=== PATIENT | male | born 1960 | race Asian ===

== ENCOUNTER → 2018-08-19 | Day surgery (SDC) | payer MEDICARE, OTHER ==
--- NOTE | 2018-08-14 10:41 | Diagnostic Imaging Report ---
EXAMINATION: CHEST 2 VIEWS INDICATION: Pre-op. COMPARISON: None FINDINGS: TUBES and LINES: None. LUNGS: Lungs are well inflated. Lungs are clear. There is no evidence of pneumonia or pulmonary edema. PLEURA: No pleural effusion or pneumothorax. HEART AND MEDIASTINUM: The cardiomediastinal silhouette is unremarkable. The thoracic aorta is tortuous. BONES AND SOFT TISSUES: No acute osseous abnormality. UPPER ABDOMEN: No free air under the diaphragm. IMPRESSION: No acute radiographic abnormality. Signed by: Dr. Gustavo Sharma MD on 08/14/2018 10:37 AM
[~2018-08-19] MED LIST: ASPIR 8181 MG PO; CEFTRIAXONE SOD 1 GM/NS 50 ML 50 ML IV ONE; FENTANYL CITRATE/PF 100MCG/2 ML INJ ONE; LIDOCAINE HCL 2% LOCAL INJ 5 ML SDV VIAL INJ ONE; MIDAZOLAM HCL 2 MG/2 ML VIAL ONE; MULTIPLE VITAM1 EAC1 PO; PROPOFOL IV EMULSION 10 MG/ML 20 ML VIAL ONE; RENVELA0.8 GM PO; SODIUM CHLORIDE 0.9% 500ML 500 ML ONE
[2018-08-19 10:32] LABS: BASOPHILS # (AUTO) 0.1 (0.0-0.1); BASOPHILS % 0.8 % (0.0-1.0); EOSINOPHILS # (AUTO) 0.6 (0.0-0.4); EOSINOPHILS % 9.1 % (0.0-6.0); HEMATOCRIT 38.3 % (38.2-49.6); HEMOGLOBIN 12.1 g/dL (14.0-18.0); LYMPHOCYTES # (AUTO) 1.2 (1.0-3.2); MEAN CORPUSCULAR HGB CONC 31.6 g/dL (31-35); MEAN CORPUSCULAR VOLUME 91.8 fL (81-99); MONOCYTES # (AUTO) 0.5 (0.2-0.8); MONOCYTES % 8.5 % (4.4-11.3); NEUTROPHILS % 63.1 % (38.7-80.0); PLATELET COUNT 190 x10e3/uL (140-360); RED BLOOD COUNT 4.17 x10e6/uL (4.3-5.7); RED CELL DISTRIBUTION WIDTH 13.7 % (11.7-14.4)
[2018-08-19 10:38] LABS: INR 0.99; PROTHROMBIN TIME 13.6 seconds (11.9-14.5)
[2018-08-19 10:39] LABS: PARTIAL THROMBOPLASTIN TIME 34.9 seconds (23.8-35.5)
[2018-08-19 10:50] LABS: ANION GAP 17.9 mmol/L (8-16); CALCIUM 10.4 mg/dL (8.4-10.2); CREATININE, SERUM 10.64 mg/dL (0.72-1.25); POTASSIUM 3.9 mmol/L (3.5-5.1)
[2018-08-19 12:40] VITALS: BP 109/67
--- OUTSIDE RECORDS SUMMARY | 2018-08-19 13:02 | XMS REPORT | Clinical Summary ---
Author Author [facility] Address Unknown Phone Unavailable Care Team Providers Care Print Developer Automatic Name Role Phone Angel Rivas MD PCP Allergies No Known Allergies Medications End Date Status Medication Sig Dispensed Refills Start Date Active sevelamer (RENVELA) 800 Take 800 mg 0 mg tablet by mouth 3 (three) times a day with meals. Take 4 tablets with each meal, and 3 with each snack Active cinacalcet (SENSIPAR) 30 Take 30 mg by 0 MG tablet mouth daily. Takes once a day with meal Active carvedilol (COREG) 25 MG Take 25 mg by 0 tablet mouth 2 (two) times a day. Active NON FORMULARY Take 1 tablet 0 by mouth daily. DIALYVITE VIT D Active aspirin (ECOTRIN) 81 MG Take 81 mg by 0 enteric coated tablet mouth daily. Active cholecalciferol, vitamin Take 5,000 0 D3, (VITAMIN D3) 5,000 Units by unit capsule mouth daily. Active Problems Problem Noted Date ESRD (end stage renal disease) on dialysis 05/22/2016 Hypertension 05/22/2016 Morbid obesity with BMI of 40.0-44.9, adult 05/22/2016 Hypertensive nephrosclerosis 02/14/2016 Encounters Care Team Description Date Type Specialty [facility] Status Update Protocol 06/17/2018 Telephone Transplant after 08/18/2017 Social History Date Tobacco Use Types Packs/Day Years Used Never Smoker Smokeless Tobacco: Never Used Sex Assigned at Date Recorded Not on file Industry Job Start Date Occupation Not on file Not on file Not on file Travel End Travel History Travel Start No recent travel history available. Last Filed Vital Signs Not on file Plan of Treatment Health Maintenance Due Date Last Done Comments COLON CANCER SCREENING 2008 SHINGLES VACCINES (#1) 2008 INFLUENZA VACCINE 11/20/2018 Results Not on fileafter 08/18/2017 Insurance Payer Benefit Subscriber ID Type Phone Address Plan / Group MEDICARE MEDICARE xxxxxxxxxx Medicare [place] PART A AND B BCBS BCBS OUT xxxxxxxxxxxx PPO OF STATE Advance Directives Patient has advance care planning documents on file. For more information, gris jim contact: Nazario Crow [address] [place] [address]
--- OUTSIDE RECORDS SUMMARY | 2018-08-19 13:02 | XMS REPORT | Clinical Summary ---
Author Author [facility] Address Unknown Phone Unavailable Care Team Providers Care Candle Making Supervisor Name Role Phone Angel Rivas PCP Unavailable Allergies Comments Active Allergy Reactions Severity Noted Date brien Moser unable to recall reactions Other Other (See 02/04/2013 Comments) Medications End Date Status Medication Sig Dispensed Refills Start Date Active cefdinir (OMNICEF) 300 MG Take 300 mg 0 capsule by mouth daily. Active folic acid-multivitamins Take 1 tablet 0 (B COMPLEX-VITAMIN by mouth C-FOLIC ACID) 0.8 mg Tab daily. tablet Active sevelamer (RENVELA) 800 Take 800 mg 0 mg tablet by mouth 3 (three) times daily with meals. 5 tablets with meals and 2-3 with snacks Active cinacalcet (SENSIPAR) 60 Take 60 mg by 0 MG tablet mouth daily. Active aspirin 81 MG chewable Take 81 mg by 0 tablet mouth daily. Active Problems Problem Noted Date Renal failure 02/03/2013 Encounters Care Team Description Date Type Specialty Melani Wilson MD Other chest pain (Primary Dx); ESRD (end stage renal disease) ([facility]); Obesity determined by physical examination; Stage 5 chronic kidney disease on chronic dialysis ([facility]) 10/16/2017 Emergency Emergency Medicine 10/16/2017 Orders Only General Internal Medicine after 08/18/2017 Family History Medical History Relation Name Comments Kidney disease Sister Relation Name Status Comments Sister Social History Date Tobacco Use Types Packs/Day Years Used Never Smoker Smokeless Tobacco: Never Used Alcohol Use Drinks/Week oz/Week Comments No Sex Assigned at Date Recorded Not on file Industry Job Start Date Occupation Not on file Not on file Not on file Travel End Travel History Travel Start No recent travel history available. Last Filed Vital Signs Time Taken Vital Sign Reading 10/16/2017 8:37 PM CDT Blood Pressure 146/105 10/16/2017 8:12 PM CDT Pulse 80 10/16/2017 8:12 PM CDT Temperature 36.6 C (97.8 F) 10/16/2017 8:12 PM CDT Respiratory Rate 20 10/16/2017 8:12 PM CDT Oxygen Saturation 100% - Inhaled Oxygen - Concentration - Weight - - Height - - Body Mass Index - Plan of Treatment Health Maintenance Due Date Last Done Comments INFLUENZA VACCINE 01/20/2018 Procedures Comments Procedure Name Priority Date/Time Associated Diagnosis ED ECG INTERPRETATION Routine 10/17/2017 7:05 PM CDT XR CHEST 2 VIEWS STAT 10/16/2017 8:56 PM CDT CBC W/PLT COUNT & AUTO STAT 10/16/2017 DIFFERENTIAL 8:54 PM CDT B-TYPE NATRIURETIC FACTOR STAT 10/16/2017 (BNP) 8:54 PM CDT RAPID TROPONIN I STAT 10/16/2017 8:54 PM CDT LIPASE STAT 10/16/2017 8:54 PM CDT HEPATIC FUNCTION PANEL STAT 10/16/2017 8:54 PM CDT BASIC METABOLIC PANEL (7) STAT 10/16/2017 8:54 PM CDT CBC W/PLT COUNT & AUTO STAT 10/16/2017 DIFFERENTIAL 8:54 PM CDT ECG 12-LEAD STAT 10/16/2017 8:13 PM CDT after 08/18/2017 Results * ED ECG Interpretation (10/17/2017 7:05 PM CDT) Narrative Performed At Melani Wilson MD 10/17/20177:05 PM ECG/EKG Interpretation Date/Time: 10/16/2017 8:13 PM Performed by: MELANI WILSON Authorized by: MELANI WILSON The ECG was interpreted by ED physician. This ECG was not compared with previous ECG(s).The ECG is interpreted as sinus rhythm. Rate is normal rate. Heart rate is 80 BPM. Clinical Impression: non-specific ECG and abnormal ECGECG reviewed and does not meet STEMI criteria. Patient tolerance: Patient tolerated the procedure well with no immediate complications * XR chest 2 views (10/16/2017 8:56 PM CDT) Specimen Narrative Performed At FINAL REPORT GE RIS INDICATION: CHEST PAIN COMPARISON: February 22, 2013 TECHNIQUE: Single frontal view of the chest. FINDINGS: Lungs and pleura: Clear lungs. No effusion. Heart and mediastinum: Normal heart size. Unremarkable mediastinal contours. Osseous structures: No acute abnormality. Other: None. IMPRESSION: No acute intrathoracic abnormality. Signed: JR Young Robert MD Report Verified Date/Time:10/16/2017 20:59:01 Reading Location: [address] Reading Room Procedure Note Interface, External Ris In - 10/16/2017 9:01 PM CDT FINAL REPORT INDICATION: CHEST PAIN COMPARISON: February 22, 2013 TECHNIQUE: Single frontal view of the chest. FINDINGS: Lungs and pleura: Clear lungs. No effusion. Heart and mediastinum: Normal heart size. Unremarkable mediastinal contours. Osseous structures: No acute abnormality. Other: None. IMPRESSION: No acute intrathoracic abnormality. Signed: JR Young Robert MD Report Verified Date/Time: 10/16/2017 20:59:01 Reading Location: [address] Reading Room Performing Organization Address City/[facility]/Zipcode Phone Number RIS * Rapid Troponin I (10/16/2017 8:54 PM CDT) Rapid Troponin I <0.05 <0.05 ng/mL [facility], [facility] [place] Specimen Blood Performing Organization Address City/[facility]/Zipcode Phone Number [facility] [address] [place] [address] [facility], [facility] [place] * CBC with platelet count + automated diff (10/16/2017 8:54 PM CDT) WBC 6.8 4.0 - 10.0 10e3/L [facility], [facility] [place] RBC 4.57 4.20 - 5.80 10e6/L [facility] [place] Hemoglobin 13.9 13.0 - 16.8 g/dL [facility] [place] Hematocrit 42.0 40.0 - 50.0 % [facility] [place] MCV 91.9 82.0 - 98.[address] [facility] [place] MCH 30.4 27.0 - 33.[address] [facility] [place] MCHC 33.1 32.0 - 36.0 g/dL [facility] [place] RDW 14.3 (H) 10.3 - 14.2 % [facility] [place] Platelets 172 150 - 430 10e3/L [facility] [place] MPV 8.5 6.5 - 10.[address] [facility] [place] % Neutros 67 % [facility] [place] % Lymphs 20 % [facility] [place] % Monos 7 % [facility] % Eos 5 % [facility] [place] % Baso 1 % [facility] [place] # Neutros 4.57 1.80 - 8.00 10e3/L [facility] # Lymphs 1.34 (L) 1.48 - 4.50 10e3/L [facility], [facility] [place] # Monos 0.50 0.00 - 1.30 10e3/L [facility], [facility] [place] # Eos 0.34 0.00 - 0.50 10e3/L [facility], [facility] [place] # Baso 0.04 0.00 - 0.20 10e3/L [facility], [facility], [facility] Specimen Blood Performing Organization Address [facility] Phone [facility] [address] [address] [facility], [facility], [facility] * B-type Natriuretic Factor (BNP) (10/16/2017 8:54 PM CDT) BNP 156 (H) 0 - 100 pg/mL [facility] Specimen Blood Performing Organization Address [facility] Phone Number [address] [address] [facility] * Lipase (10/16/2017 8:54 PM CDT) Lipase 395 (H) 40 - 240 U/L [facility], [facility], [facility] Specimen Blood Performing Organization Address City/[facility] Phone Number [address] [phone] [facility] * Hepatic function panel (10/16/2017 8:54 PM CDT) Protein, Total 7.7 6.0 - 8.5 gm/dL [facility], [facility], [facility] Albumin 4.2 3.5 - 5.0 g/dL [facility], [facility], [facility] Total Bilirubin 0.8 0.1 - 1.2 mg/dL [facility] [place] Bilirubin, Direct 0.6 (H) 0.0 - 0.4 mg/dL [facility], [facility] [place] Alkaline Phosphatase 92 30 - 115 U/L [facility] AST 15 5 - 40 U/L [facility] [place] ALT 38 5 - 50 U/L [facility], [facility] [place] Specimen Blood Performing Organization Address City/State/Zipcode Phone Number [facility] [address] [place] [address] [facility], [facility] [place] * Basic Metabolic Panel (10/16/2017 8:54 PM CDT) Sodium 139 135 - 148 meq/L [facility] Potassium 5.0 3.6 - 5.5 meq/L [facility] Chloride 95 (L) 98 - 106 meq/L [facility] CO2 34 (H) 24 - 32 meq/L [facility] BUN 23 10 - 26 mg/dL [facility] Creatinine 7.95 (H) 0.50 - 1.20 mg/dL [facility] Glucose 80 70 - 110 mg/dL [facility] Calcium 10.1 8.5 - 10.5 mg/dL [facility], [facility], [facility] EGFR 8Comment: ESTIMATED GFR IS NOT mL/min/1.73 sq m LUCAS VALLEJO ACCURATE CREATININE [facility] MEDICAL CLEARANCE IN PREDICTING [place] GLOMERULAR FILTRATION RATE. EMERGENCY CENTER, ESTIMATED GFR IS NOT [facility] APPLICABLE FOR DIALYSIS PATIENTS. Specimen Blood Performing Organization Address City/State/Zipcode Phone Number LUCAS VALLEJO [address] [place] [address] [facility], [facility], [facility] * ECG 12 lead (10/16/2017 8:13 PM CDT) Specimen Narrative Performed At Ventricular Rate 80 BPM GE MUSE Atrial Rate 80 BPM P-R Interval 186 ms QRS Duration 86 ms Q-T Interval 360 ms QTC Calculation(Bazett) 415 ms P [place] 46 degrees R [place] 5 degrees T [place] -7 degrees Normal sinus rhythm Possible Left atrial enlargement Nonspecific T wave abnormality Abnormal ECG When compared with ECG of 03-FEB-2013 17:52, T wave inversion now evident in Inferior leads QT has shortened Confirmed by Surjit GOMEZ, STANISLAV ([id number]) on 10/18/2017 9:46:19 AM Procedure Note Interface, External Ris In - 10/18/2017 9:46 AM CDT Ventricular Rate 80 BPM Atrial Rate 80 BPM P-R Interval 186 ms QRS Duration 86 ms Q-T Interval 360 ms QTC Calculation(Bazett) 415 ms P [place] 46 degrees R [place] 5 degrees T [place] -7 degrees Normal sinus rhythm Possible Left atrial enlargement Nonspecific T wave abnormality Abnormal ECG When compared with ECG of 03-FEB-2013 17:52, T wave inversion now evident in Inferior leads QT has shortened Confirmed by Surjit GOMEZ, STANISLAV ([id number]) on 10/18/2017 9:46:19 AM Performing Organization Address City/State/Zipcode Phone Number DIPIKA OROURKE after 08/18/2017 Insurance Payer Benefit Subscriber ID Type Phone Address Plan / Group MEDICARE MEDICARE A xxxxxxxxxx Medicare B BLUE CROSS/BLUE SHIELD BCBS PPO xxxxxxxxxxxx PPO [phone] [address] [place] [address] CHOICE
--- OUTSIDE RECORDS SUMMARY | 2018-08-19 13:03 | XMS REPORT | Summary of Care ---
Author Author [facility] Organization [facility] Address Unknown Phone Unavailable Encounter SPIKE Lamb(NOVA) [id number] Date(s): 01/07/18 - 01/07/18 [facility] [address] [place] [address]- [phone] Encounter Diagnosis Other specified complication of vascular prosthetic devices, implants and grafts , initial encounter (Final) - 01/10/18 Hypertensive chronic kidney disease with stage 5 chronic kidney disease or end s tage renal disease (Final) - End stage renal disease (Final) - 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) - Dependence on renal dialysis (Final) - Obstructive sleep apnea (adult) (pediatric) (Final) - prison (current) use of aspirin (Final) - Discharge Disposition: Home or Self Care Attending Physician: Kamran Gray MD Referring Physician: Kamran Gray MD Vital Signs 1 2 3 Most recent to oldest [Reference Range]: 190.5 cm (01/02/18 8:50 AM) Height 145/77 mmHg *HI* (01/07/18 11:15 AM) 164/80 mmHg *HI* (01/07/18 10:55 AM) 154/98 mmHg *HI* (01/07/18 10:45 AM) Blood Pressure [90-140/60-90 mmHg] 16 BRMIN (01/07/18 11:15 AM) 16 BRMIN (01/07/18 10:55 AM) 11 BRMIN *LOW* (01/07/18 10:45 AM) Respiratory Rate [14-20 BRMIN] 77 bpm (01/07/18 8:14 AM) Peripheral Pulse Rate [60-100 bpm] 139.091 kg (01/02/18 8:50 AM) Weight 38.33 m2 (01/02/18 8:50 AM) Body Mass Index Problem List Condition Effective Dates Status Health Status Informant End stage renal Active disease(Confirmed) Hypertension(Confirm Resolved ed) Obstructive sleep Active apnea(Confirmed) Allergies, Adverse Reactions, Alerts Substance Reaction Severity Status NKDA Active Medications acetaminophen-codeine 300 mg-60 mg oral tablet 1 tab=, PO, Q4H, PRN Pain, X 7 day, # 42 tab, 0 Refill(s) Start Date: 01/07/18 Stop Date: 01/14/18 Status: Completed Ancef + sterile water 30 mL 3 gm, Route: IVPB, ONCE, Dosing Weight 139.091, kg, Start date: 01/07/18 5:46:00 CDT, Stop date: 01/07/18 5:46:00 CDT, ABX Indication: Surgical Prophylaxis Notes: (Same As: Ancef, Anibalzol) MEDICATION WASTE Product Size: 1000 mgP roduct Wasted: ___ mg Start Date: 01/07/18 Stop Date: 01/07/18 Status: Completed ANES flumazenil 0.2 mg, 2 mL, Route: IVP, Drug form: INJ, PRN, Dosing Weight 139.091, kg, PRN Be nzodiazepine Reversal, Initial dose, Start date: 01/07/18 8:43:00 CDT, Duration: 12 hr, Stop date: 01/07/18 20:42:00 CDT Notes: (Same as: Romazicon) Start Date: 01/07/18 Stop Date: 01/07/18 Status: Discontinued ANES hydrALAZINE 10 mg, 0.5 mL, Route: IVP, Drug form: INJ, Q10Min, Dosing Weight 139.091, kg, TN N Elevated BP, Start date: 01/07/18 8:43:00 CDT, Duration: 2 doses or times, Sto p date: 01/07/18 22:00:00 CDT Notes: (Same as: Apresoline)Push over 5 minutes Start Date: 01/07/18 Stop Date: 01/07/18 Status: Discontinued ANES meperidine 12.5 mg, 0.5 mL, Route: IVP, Drug form: INJ, Q30Min, Dosing Weight 139.091, kg, PRN Other -See Comment, For shivering, Start date: 01/07/18 8:43:00 CDT, Duratio n: 2 doses or times, Stop date: 01/07/18 22:00:00 CDT Notes: (Same as: Demerol) "Use Precaution in Elderly, Seizure disorders, and Re nal impairment" Start Date: 01/07/18 Stop Date: 01/07/18 Status: Discontinued ANES morphine Sulfate 4 mg, 1 mL, Route: IVP, Drug form: SOLN, Q5Min, Dosing Weight 139.091, kg, PRN P ain Score 7-10, Start date: 01/07/18 8:43:00 CDT, Duration: 3 doses or times, St op date: 01/07/18 22:00:00 CDT Notes: (Same as: MORPhine Sulfate) Start Date: 01/07/18 Stop Date: 01/07/18 Status: Discontinued ANES morphine Sulfate 2 mg, 1 mL, Route: IVP, Drug form: INJ, Q5Min, Dosing Weight 139.091, kg, PRN Pa in Score 4-6, Start date: 01/07/18 8:43:00 CDT, Duration: 5 doses or times, Stop date: 01/07/18 22:00:00 CDT Notes: (Same as:MORPhine Sulfate) Start Date: 01/07/18 Stop Date: 01/07/18 Status: Discontinued ANES naloxone 0.4 mg, 1 mL, Route: IVP, Drug form: INJ, Q2MIN, Dosing Weight 139.091, kg, PRN Narcotic Reversal, Start date: 01/07/18 8:43:00 CDT, Duration: 8 doses or times, Stop date: 01/07/18 22:00:00 CDT Notes: Same as Narcan Start Date: 01/07/18 Stop Date: 01/07/18 Status: Discontinued ANES ondansetron 4 mg, 2 mL, Route: IVP, Drug form: INJ, ONCE, Dosing Weight 139.091, kg, PRN [place] & Vomiting, Start date: 01/07/18 8:43:00 CDT Notes: (Same as: Nora) MEDICATION WASTE Product Size: 4 mgProduct Was kaiser: ___ mg Start Date: 01/07/18 Stop Date: 01/07/18 Status: Discontinued ANES oxyCODONE 5 mg, 1 tab, Route: PO, Drug form: TAB, Q4H, Dosing Weight 139.091, kg, PRN Pain Score 4-6, Start date: 01/07/18 8:43:00 CDT, Duration: 12 hr, Stop date: 20:42:00 CDT Notes: (Same as: Roxicodone) Start Date: 01/07/18 Stop Date: 01/07/18 Status: Discontinued ceFAZolin (ANES) Route: IV, Drug form: INJ, ONCE, Stop date: 01/07/18 9:59:00 CDT Start Date: 01/07/18 Stop Date: 01/07/18 Status: Completed ePHEDrine (ANES) Route: IV, Drug form: INJ, ONCE, Stop date: 01/07/18 9:59:00 CDT Start Date: 01/07/18 Stop Date: 01/07/18 Status: Completed fentaNYL (ANES) Route: IV, Drug form: INJ, ONCE, Stop date: 01/07/18 9:34:00 CDT Start Date: 01/07/18 Stop Date: 01/07/18 Status: Completed heparin (ANES) Route: IV, Drug form: INJ, ONCE, Stop date: 01/07/18 9:59:00 CDT Start Date: 01/07/18 Stop Date: 01/07/18 Status: Completed Keflex 500 mg oral capsule 500 mg=1 cap, PO, BID, X 7 day, # 14 cap, 0 Refill(s) Start Date: 01/07/18 Stop Date: 01/14/18 Status: Completed Lactated Ringers Injection IV (ANES) 1000 mL Route: IV, Total Volume: 1,000, Start date: 01/07/18 8:49:00 CDT, Stop date: 9:49:00 CDT Start Date: 01/07/18 Stop Date: 01/07/18 Status: Completed Lactated Ringers Injection IV 1,000 mL 1,000 mL, Rate: 25 ml/hr, Infuse over: 40 hr, Route: IV, Dosing Weight 139.091 k g, Total Volume: 1,000, Start date: 01/07/18 8:42:00 CDT, Duration: 30 day, Stop date: 02/06/18 8:41:00 CDT, 2.74, m2 Start Date: 01/07/18 Stop Date: 01/07/18 Status: Discontinued lidocaine (ANES) Route: IV, Drug form: INJ, ONCE, Stop date: 01/07/18 9:34:00 CDT Start Date: 01/07/18 Stop Date: 01/07/18 Status: Completed midazolam (ANES) Route: IV, Drug form: SOLN, ONCE, Stop date: 01/07/18 9:34:00 CDT Start Date: 01/07/18 Stop Date: 01/07/18 Status: Completed phenylephrine (ANES) Route: IV, Drug form: INJ, ONCE, Stop date: 01/07/18 10:06:00 CDT Start Date: 01/07/18 Stop Date: 01/07/18 Status: Completed propofol (ANES) Route: IV, Drug form: INJ, ONCE, Stop date: 01/07/18 9:34:00 CDT Start Date: 01/07/18 Stop Date: 01/07/18 Status: Completed protamine (ANES) Route: IV, Drug form: INJ, ONCE, Stop date: 01/07/18 10:06:00 CDT Start Date: 01/07/18 Stop Date: 01/07/18 Status: Completed rocuronium (ANES) Route: IV, Drug form: INJ, ONCE, Stop date: 01/07/18 9:34:00 CDT Start Date: 01/07/18 Stop Date: 01/07/18 Status: Completed Sodium Chloride 0.9% IV 250 mL 250 mL, Rate: 30 ml/hr, Infuse over: 8.3 hr, Route: IV, Dosing Weight 139.091 kg , Total Volume: 250, Start date: 01/07/18 5:45:00 CDT, Duration: 30 day, Stop da te: 02/06/18 5:44:00 CDT, 2.74, m2 Start Date: 01/07/18 Stop Date: 01/07/18 Status: Discontinued Results ELECTROLYTES Most recent to 1 oldest [Reference Range]: Sodium Lvl [135-145 138 mEq/L mEq/L] (01/02/18 9:45 AM) Potassium Lvl 5.0 mEq/L [3.5-5.1 mEq/L] (01/02/18 9:45 AM) Chloride Lvl [95-109 97 mEq/L mEq/L] (01/02/18 9:45 AM) CO2 [24-32 mEq/L] 32 mEq/L (01/02/18 9:45 AM) AGAP [10.0-20.0 14.0 mEq/L mEq/L] (01/02/18 9:45 AM) CHEM PANEL Most recent to 1 oldest [Reference Range]: Creatinine Lvl 10.20 mg/dL [0.50-1.40 mg/dL] *HI* (01/02/18 9:45 AM) eGFR 6 mL/min/1.73m2 1 *NA* (01/02/18 9:45 AM) BUN [7-22 mg/dL] 38 mg/dL *HI* (01/02/18 9:45 AM) Glucose Lvl [70-99 74 mg/dL mg/dL] (01/02/18 9:45 AM) Calcium Lvl 10.0 mg/dL [8.5-10.5 mg/dL] (01/02/18 9:45 AM) 1Result Comment: The eGFR is calculated using the CKD-EPI formula. In most young, healthy individuals the eGFR will be >90 mL/min/1.73m2. The eGFR declines with age. An eGFR of 60-89 may be normal in some populations, particularly the elderly, for whom the CKD-EPI formula has not been extensively validated. Use of the eGFR is not recommended in the following populations: Individuals with unstable creatinine concentrations, including patients and those with serious co-morbid conditions. Patients with extremes in muscle mass or diet. The data above are obtained from the National Kidney Disease Education Program ( NKDEP) which additionally recommends that when the eGFR is used in patients with extremes of body mass index for purposes of drug dosing, the eGFR should be mul tiplied by the estimated BMI. HEMATOLOGY Most recent to 1 oldest [Reference Range]: WBC [3.7-10.4 K/CMM] 7.3 K/CMM (01/02/18 9:45 AM) RBC [4.70-6.10 4.52 M/CMM M/CMM] *LOW* (01/02/18 9:45 AM) Hgb [14.0-18.0 g/dL] 14.1 g/dL (01/02/18 9:45 AM) Hct [42.0-54.0 %] 42.6 % (01/02/18 9:45 AM) MCV [80.0-94.0 fL] 94.4 fL *HI* (01/02/18 9:45 AM) MCH [27.0-31.0 pg] 31.2 pg *HI* (01/02/18 9:45 AM) MCHC [32.0-36.0 33.1 g/dL g/dL] (01/02/18 9:45 AM) RDW [11.5-14.5 %] 15.3 % *HI* (01/02/18 9:45 AM) MPV [7.4-10.4 fL] 8.6 fL (01/02/18 9:45 AM) Platelet [133-450 181 K/CMM K/CMM] (01/02/18 9:45 AM) Segs [45.0-75.0 %] 68.7 % (01/02/18 9:45 AM) Lymphocytes 15.1 % [20.0-40.0 %] *LOW* (01/02/18 9:45 AM) Monocytes [2.0-12.0 8.8 % %] (01/02/18 9:45 AM) Eosinophils [0.0-4.0 6.7 % %] *HI* (01/02/18 9:45 AM) Basophils [0.0-1.0 0.7 % %] (01/02/18 9:45 AM) Neutrophils # 5.0 K/CMM [1.5-8.1 K/CMM] (01/02/18 9:45 AM) Lymphocytes # 1.1 K/CMM [1.0-5.5 K/CMM] (01/02/18 9:45 AM) Monocytes # [0.0-0.8 0.6 K/CMM K/CMM] (01/02/18 9:45 AM) Eosinophils # 0.5 K/CMM [0.0-0.5 K/CMM] (01/02/18 9:45 AM) PT [12.0-14.7 13.9 seconds seconds] (01/02/18 9:45 AM) INR [0.85-1.17] 1.07 (01/02/18 9:45 AM) PTT [22.9-35.8 34.9 seconds seconds] (01/02/18 9:45 AM) Immunizations Given and Recorded Vaccine Date Status Refusal Reason Hx pneumococcal vaccine 04/28/18 Recorded Hx pneumococcal vaccine 03/02/13 Recorded Hx influenza vaccine-unspecified 01/10/18 Recorded Hx influenza vaccine-unspecified 01/17/17 Recorded Hx influenza vaccine-unspecified 12/24/15 Recorded Hx influenza vaccine-unspecified 01/17/15 Recorded Hx influenza vaccine-unspecified 12/23/13 Recorded Hx influenza vaccine-unspecified 05/08/13 Recorded Hx hepatitis B vaccine 05/11/14 Recorded Hx hepatitis B vaccine 12/18/13 Recorded Hx hepatitis B vaccine 11/16/13 Recorded Hx hepatitis B vaccine 10/07/13 Recorded Procedures Procedure Date Related Diagnosis Body Site Status Colonoscopy 2016 Completed Hydrocele operation 2003 Completed Repair of umbilical hernia 1989 Completed Endoscopy Completed Social History Social History Type Response Substance Abuse Use: None. Employment/School Status: Disabled. Alcohol Current, Type Beer. Frequency: 1-2 times per month. Smoking Status Former smoker; Type: Cigars; Exposure to Tobacco Smoke None; Cigarette Smoking Last 365 Days No; Reg Smoking Cessation Counseling No; Stopped at age: 33; entered on: 01/02/18 Assessment and Plan No data available for this section
--- OUTSIDE RECORDS SUMMARY | 2018-08-19 13:03 | XMS REPORT ---
Author Author [facility] Address Unknown Phone Unavailable Care Team Providers Care Clinical Research Manager Name Role Phone Faiza WEAVER Unavailable Unavailable NATACHA ABDI Unavailable Unavailable Problems This patient has no known problems. Allergies, Adverse Reactions, Alerts This patient has no known allergies or adverse reactions. Medications This patient has no known medications. Encounters Start Date/Time End Date/Time Encounter Type Admission Type Attending Clinicians Care Facility Care Department Encounter ID 2018-08-12 07:14:00 2018-08-12 07:14:00 Outpatient [facility] [id number] Results Test Description Test Time Test Comments Text Results Atomic Results Result Comments CHEST 2 VIEWS 2018-08-14 10:35:00 [place] [address] Patient Name: KATHRYN DAS MR #: [id number] : 1960 Age/Sex: 58/M Req #: [id number] Adm Physician: Ordered by: RITA WEAVER MD Report #: [id number] Location: OR Room/Bed: Procedure: [id number] DX/CHEST 2 VIEWS Exam Date: 08/14/18 Exam Time: 1020 REPORT STATUS: Signed EXAMINATION: CHEST 2 VIEWS INDICATION: Pre-op. COMPARISON: None FINDINGS: TUBES and LINES: None. LUNGS: Lungs are well inflated. Lungs are clear. There is no evidence of pneumonia or pulmonary edema. PLEURA: No pleural effusion or pneumothorax. HEART AND MEDIASTINUM: The cardiomediastinal silhouette is unremarkable. The thoracic aorta is tortuous. BONES AND SOFT TISSUES: No acute osseous abnormality. UPPER ABDOMEN: No free air under the diaphragm. IMPRESSION: No acute radiographic abnormality. Signed by: Dr. Regi Sharma MD on 08/14/2018 10:37 AM Dictated By: REGI SHARMA MD [id number] Transcribed By: GARY on 08/14/18 1037 COPY TO: RITA WEAVER MD RAPID TROPONIN I 2017-10-16 21:18:00 RAPID TROPONIN I (BEAKER) (test fcxm=0716) < ng/mL <0.05 B-TYPE NATRIURETIC FACTOR (BNP)2017-10-16 21:18:00* Test Item Value Reference Range Comments B-TYPE NATRIURETIC PEPTIDE (BEAKER) (test ftye=225) 156 pg/mL 0-100 HEPATIC FUNCTION [id number] 21:17:00* Test Item Value Reference Range Comments TOTAL PROTEIN (BEAKER) (test lgot=259) 7.7 gm/dL 6.0-8.5 ALBUMIN (BEAKER) (test coft=6615) 4.2 g/dL 3.5-5.0 BILIRUBIN TOTAL (BEAKER) (test gtii=690) 0.8 mg/dL 0.1-1.2 BILIRUBIN DIRECT (BEAKER) (test xlvd=407) 0.6 mg/dL 0.0-0.4 ALKALINE PHOSPHATASE (BEAKER) (test quxz=641) 92 U/L 30-115 AST (SGOT) (BEAKER) (test qbca=129) 15 U/L 5-40 ALT (SGPT) (BEAKER) (test clpu=594) 38 U/L 5-50 [id number] 21:17:00* Test Item Value Reference Range Comments LIPASE (BEAKER) (test axkb=475) 395 U/L 40-240 BASIC METABOLIC [id number] 21:17:00* Test Item Value Reference Range Comments SODIUM (BEAKER) (test tcfx=063) 139 meq/L 135-148 POTASSIUM (BEAKER) (test ovsl=479) 5.0 meq/L 3.6-5.5 CHLORIDE (BEAKER) (test amkf=232) 95 meq/L 98-106 CO2 (BEAKER) (test esag=943) 34 meq/L 24-32 BLOOD UREA NITROGEN (BEAKER) (test hfpa=822) 23 mg/dL 10-26 CREATININE (BEAKER) (test watt=391) 7.95 mg/dL 0.50-1.20 GLUCOSE RANDOM (BEAKER) (test rsbx=850) 80 mg/dL 70-110 CALCIUM (BEAKER) (test joub=841) 10.1 mg/dL 8.5-10.5 EGFR (BEAKER) (test mrzw=7725) 8 mL/min/1.73 sq m ESTIMATED GFR IS NOT ACCURATE CREATININE CLEARANCE IN PREDICTING GLOMERULAR FILTRATION RATE. ESTIMATED GFR IS NOT APPLICABLE FOR DIALYSIS PATIENTS. CBC W/PLT COUNT & AUTO [id number] 21:11:00* Test Item Value Reference Range Comments WHITE BLOOD CELL COUNT (BEAKER) (test haeb=213) 6.8 10e3/i? L 4.0-10.0 RED BLOOD CELL COUNT (BEAKER) (test ztjy=594) 4.57 10e6/i? L 4.20-5.80 HEMOGLOBIN (BEAKER) (test jeny=023) 13.9 g/dL 13.0-16.8 HEMATOCRIT (BEAKER) (test ksko=808) 42.0 % 40.0-50.0 MEAN CORPUSCULAR VOLUME (BEAKER) (test lgbt=889) 91.9 fL 82.0-98.0 MEAN CORPUSCULAR HEMOGLOBIN (BEAKER) (test kzcx=530) 30.4 pg 27.0-33.0 MEAN CORPUSCULAR HEMOGLOBIN CONC (BEAKER) (test stgi=299) 33.1 g/dL 32.0-36.0 RED CELL DISTRIBUTION WIDTH (BEAKER) (test amoj=180) 14.3 % 10.3-14.2 PLATELET COUNT (BEAKER) (test ftwn=018) 172 10e3/i? L 150-430 MEAN PLATELET VOLUME (BEAKER) (test cozs=014) 8.5 fL 6.5-10.5 NEUTROPHILS RELATIVE PERCENT (BEAKER) (test wyib=382) 67 % LYMPHOCYTES RELATIVE PERCENT (BEAKER) (test hbnu=000) 20 % MONOCYTES RELATIVE PERCENT (BEAKER) (test kvwy=036) 7 % EOSINOPHILS RELATIVE PERCENT (BEAKER) (test apsa=927) 5 % BASOPHILS RELATIVE PERCENT (BEAKER) (test xfww=578) 1 % NEUTROPHILS ABSOLUTE COUNT (BEAKER) (test qurl=026) 4.57 10e3/i? L 1.80-8.00 LYMPHOCYTES ABSOLUTE COUNT (BEAKER) (test sjfv=290) 1.34 10e3/i? L 1.48-4.50 MONOCYTES ABSOLUTE COUNT (BEAKER) (test ftyu=891) 0.50 10e3/i? L 0.00-1.30 EOSINOPHILS ABSOLUTE COUNT (BEAKER) (test cbnm=968) 0.34 10e3/i? L 0.00-0.50 BASOPHILS ABSOLUTE COUNT (BEAKER) (test apyz=135) 0.04 10e3/i? L 0.00-0.20 RAD, CHEST, 2 [id number] 20:59:00Reason for exam:->CHEST PAINFINAL REPORT INDICATION: CHEST PAIN COMPARISON: February 22, 2013 TECHNIQUE: Single frontal view of the chest. FINDINGS: Lungs and pleura: Clear lungs. No effusion.Heart and mediastinum: Normal heart size. Unremarkable mediastinal contours.Osseous structures: No acute abnormality.Other: None. IMP RESSION: No acute intrathoracic abnormality. Signed: JR Hannah, Christie JACOB Report Verified Date/Time: 10/16/2017 20:59:01 Reading Location: [address] Reading Room Electronically signed by: CHRISTIE SETHI on 08:59 PM
--- OUTSIDE RECORDS SUMMARY | 2018-08-19 13:03 | XMS REPORT | Summary of Care ---
Author Author [facility] Organization [facility] Address Unknown Phone Unavailable Encounter SPIKE Lamb(NOVA) [id number] Date(s): 11/05/17 - 11/05/17 [facility] [id number] [place] [address]- Encounter Diagnosis Other specified complication of vascular prosthetic devices, implants and grafts , initial encounter (Final) - 11/14/17 Hypertensive chronic kidney disease with stage 5 chronic kidney disease or end s tage renal disease (Final) - End stage renal disease (Final) - Dependence on renal dialysis (Final) - Obstructive sleep apnea (adult) (pediatric) (Final) - Personal history of nicotine dependence (Final) - [facility] (current) use of aspirin (Final) - Discharge Disposition: Home or Self Care Attending Physician: Kamran Gray MD Referring Physician: Kamran Gray MD Vital Signs 1 2 3 Most recent to oldest [Reference Range]: 190.5 cm (10/31/17 9:08 AM) Height 150/80 mmHg *HI* (11/05/17 11:05 AM) 158/85 mmHg *HI* (11/05/17 10:50 AM) 162/89 mmHg *HI* (11/05/17 10:20 AM) Blood Pressure [90-140/60-90 mmHg] 16 BRMIN (11/05/17 11:05 AM) 16 BRMIN (11/05/17 10:50 AM) 16 BRMIN (11/05/17 10:20 AM) Respiratory Rate [14-20 BRMIN] 67 bpm (11/05/17 7:27 AM) Peripheral Pulse Rate [60-100 bpm] 138.295 kg (10/31/17 9:08 AM) Weight 38.11 m2 (10/31/17 9:08 AM) Body Mass Index Problem List Condition Effective Dates Status Health Status Informant End stage renal Active disease(Confirmed) Hypertension(Confirm Resolved ed) Obstructive sleep Active apnea(Confirmed) Allergies, Adverse Reactions, Alerts Substance Reaction Severity Status NKDA Active Medications acetaminophen-codeine 300 mg-60 mg oral tablet 1 tab=, PO, Q4H, PRN Pain, X 7 day, # 42 tab, 0 Refill(s) Start Date: 11/05/17 Stop Date: 11/12/17 Status: Completed ANES flumazenil 0.2 mg, 2 mL, Route: IVP, Drug form: INJ, PRN, Dosing Weight 138.295, kg, PRN Be nzodiazepine Reversal, Initial dose, Start date: 11/05/17 7:50:00 CDT, Duration: 12 hr, Stop date: 11/05/17 19:49:00 CDT Notes: (Same as: Romazicon) Start Date: 11/05/17 Stop Date: 11/05/17 Status: Discontinued ANES labetalol 10 mg, 2 mL, Route: IVP, Drug form: INJ, Q5Min, Dosing Weight 138.295, kg, PRN E levated BP, Start date: 11/05/17 7:50:00 CDT, Duration: 5 doses or times, Stop d ate: 11/05/17 19:50:00 CDT Notes: (Same as: Normodyne, Trandate)Push over 2 minutes Give bolus over 2-3 mi nutes. Start Date: 11/05/17 Stop Date: 11/05/17 Status: Discontinued ANES meperidine 12.5 mg, 0.5 mL, Route: IVP, Drug form: INJ, Q30Min, Dosing Weight 138.295, kg, PRN Other -See Comment, For shivering, Start date: 11/05/17 7:50:00 CDT, Duratio n: 2 doses or times, Stop date: 11/05/17 19:50:00 CDT Notes: (Same as: Demerol) "Use Precaution in Elderly, Seizure disorders, and Re nal impairment" Start Date: 11/05/17 Stop Date: 11/05/17 Status: Discontinued ANES morphine Sulfate 2 mg, 1 mL, Route: IVP, Drug form: SOLN, Q5Min, Dosing Weight 138.295, kg, PRN P ain Score 4-6, Start date: 11/05/17 7:50:00 CDT, Duration: 5 doses or times, Sto p date: 11/05/17 19:50:00 CDT Start Date: 11/05/17 Stop Date: 11/05/17 Status: Discontinued ANES morphine Sulfate 4 mg, 2 mL, Route: IVP, Drug form: SOLN, Q5Min, Dosing Weight 138.295, kg, PRN P ain Score 7-10, Start date: 11/05/17 7:50:00 CDT, Duration: 3 doses or times, St op date: 11/05/17 19:50:00 CDT Start Date: 11/05/17 Stop Date: 11/05/17 Status: Discontinued ANES naloxone 0.4 mg, 1 mL, Route: IVP, Drug form: INJ, Q2MIN, Dosing Weight 138.295, kg, PRN Narcotic Reversal, Start date: 11/05/17 7:50:00 CDT, Duration: 8 doses or times, Stop date: 11/05/17 19:50:00 CDT Notes: Same as Narcan Start Date: 11/05/17 Stop Date: 11/05/17 Status: Discontinued ANES ondansetron 4 mg, 2 mL, Route: IVP, Drug form: INJ, ONCE, Dosing Weight 138.295, kg, PRN [place] & Vomiting, Start date: 11/05/17 7:50:00 CDT Notes: (Same as: Nora) MEDICATION WASTE Product Size: 4 mgProduct Was kaiser: ___ mg Start Date: 11/05/17 Stop Date: 11/05/17 Status: Discontinued ANES oxyCODONE 5 mg, 1 tab, Route: PO, Drug form: TAB, Q4H, Dosing Weight 138.295, kg, PRN Pain Score 4-6, Start date: 11/05/17 7:50:00 CDT, Duration: 12 hr, Stop date: 19:49:00 CDT Notes: (Same as: Roxicodone) Start Date: 11/05/17 Stop Date: 11/05/17 Status: Discontinued aspirin 81 mg tablet, enteric coated 81 mg=1 tab, PO, Daily, # 90 tab, 3 Refill(s) Start Date: 10/31/17 Status: Ordered ceFAZolin 2 gm, 50 mL, Route: IVPB, Drug form: INJ, ONCALL, Dosing Weight 138.295, kg, Sta rt date: 11/05/17 6:00:00 CDT, Duration: 1 doses or times, ABX Indication: Surgi kimberli Prophylaxis Start Date: 11/05/17 Stop Date: 11/05/17 Status: Discontinued ceFAZolin (ANES) Route: IV, Drug form: INJ, ONCE, Stop date: 11/05/17 9:06:00 CDT Start Date: 11/05/17 Stop Date: 11/05/17 Status: Completed ceFAZolin + sterile water 30 mL 3 gm, Route: IVPB, ONCALL, Dosing Weight 138.295, kg, Start date: 11/05/17 8:00: 00 CDT, Duration: 1 doses or times, ABX Indication: Surgical Prophylaxis Notes: (Same As: Jared o[place]) MEDICATION WASTE Product Size: 1000 mgP roduct Wasted: ___ mg Start Date: 11/05/17 Stop Date: 11/05/17 Status: Completed fentaNYL (ANES) Route: IV, Drug form: INJ, ONCE, Stop date: 11/05/17 9:06:00 CDT Start Date: 11/05/17 Stop Date: 11/05/17 Status: Completed heparin (ANES) Route: IV, Drug form: INJ, ONCE, Stop date: 11/05/17 9:06:00 CDT Start Date: 11/05/17 Stop Date: 11/05/17 Status: Completed Keflex 500 mg oral capsule 500 mg=1 cap, PO, BID, X 7 day, # 14 cap, 0 Refill(s) Start Date: 11/05/17 Stop Date: 11/12/17 Status: Completed lidocaine (ANES) Route: IV, Drug form: INJ, ONCE, Stop date: 11/05/17 9:06:00 CDT Start Date: 11/05/17 Stop Date: 11/05/17 Status: Completed midazolam (ANES) Route: IV, Drug form: SOLN, ONCE, Stop date: 11/05/17 9:06:00 CDT Start Date: 11/05/17 Stop Date: 11/05/17 Status: Completed multivitamin Daily, 0 Refill(s) Start Date: 10/31/17 Status: Ordered propofol (ANES) Route: IV, Drug form: INJ, ONCE, Stop date: 11/05/17 9:06:00 CDT Start Date: 11/05/17 Stop Date: 11/05/17 Status: Completed protamine (ANES) 10 mg Route: IV, Drug form: INJ, Start date: 11/05/17 9:05:00 CDT, Stop date: 11/05/17 10:05:00 CDT Start Date: 11/05/17 Stop Date: 11/05/17 Status: Completed Renvela 800 mg oral tablet 800 mg=1 tab, PO, TID-Meals, # 90 tab, 0 Refill(s) Start Date: 10/31/17 Stop Date: 11/30/17 Status: Ordered rocuronium (ANES) Route: IV, Drug form: INJ, ONCE, Stop date: 11/05/17 9:06:00 CDT Start Date: 11/05/17 Stop Date: 11/05/17 Status: Completed Sensipar 60 mg oral tablet 60 mg=1 tab, PO, Daily, # 30 tab, 0 Refill(s) Start Date: 10/31/17 Status: Ordered Sodium Chloride 0.9% IV (ANES) 250 mL Route: IV, Total Volume: 250, Start date: 11/05/17 8:09:00 CDT, Stop date: 11/05 9:09:00 CDT Start Date: 11/05/17 Stop Date: 11/05/17 Status: Completed Sodium Chloride 0.9% IV 250 mL 250 mL, Rate: 30 ml/hr, Infuse over: 8.3 hr, Route: IV, Dosing Weight 138.295 kg , Total Volume: 250, Start date: 11/05/17 5:29:00 CDT, Duration: 30 day, Stop da te: 12/05/17 5:28:00 CDT, 2.73, m2 Start Date: 11/05/17 Stop Date: 11/05/17 Status: Discontinued Results ELECTROLYTES Most recent to 1 2 oldest [Reference Range]: Sodium Lvl [135-145 137 mEq/L mEq/L] (10/31/17 9:49 AM) Potassium Lvl 4.8 mEq/L 5.1 mEq/L [3.5-5.1 mEq/L] (11/05/17 7:39 AM) (10/31/17 9:49 AM) Chloride Lvl [95-109 99 mEq/L mEq/L] (10/31/17 9:49 AM) CO2 [24-32 mEq/L] 32 mEq/L (10/31/17 9:49 AM) AGAP [10.0-20.0 11.1 mEq/L mEq/L] (10/31/17 9:49 AM) CHEM PANEL Most recent to 1 2 oldest [Reference Range]: Creatinine Lvl 9.53 mg/dL [0.50-1.40 mg/dL] *HI* (10/31/17 9:49 AM) eGFR 6 mL/min/1.73m2 1 *NA* (10/31/17 9:49 AM) BUN [7-22 mg/dL] 37 mg/dL *HI* (10/31/17 9:49 AM) Glucose Lvl [70-99 79 mg/dL mg/dL] (10/31/17 9:49 AM) Calcium Lvl 10.3 mg/dL [8.5-10.5 mg/dL] (10/31/17 9:49 AM) 1Result Comment: The eGFR is calculated [...] estimated BMI. HEMATOLOGY Most recent to 1 2 oldest [Reference Range]: WBC [3.7-10.4 K/CMM] 5.7 K/CMM (10/31/17 9:49 AM) RBC [4.70-6.10 4.48 M/CMM M/CMM] *LOW* (10/31/17 9:49 AM) Hgb [14.0-18.0 g/dL] 13.8 g/dL *LOW* (10/31/17 9:49 AM) Hct [42.0-54.0 %] 41.5 % *LOW* (10/31/17 9:49 AM) MCV [80.0-94.0 fL] 92.8 fL (10/31/17 9:49 AM) MCH [27.0-31.0 pg] 30.8 pg (10/31/17 9:49 AM) MCHC [32.0-36.0 33.2 g/dL g/dL] (10/31/17 9:49 AM) RDW [11.5-14.5 %] 15.5 % *HI* (10/31/17 9:49 AM) MPV [7.4-10.4 fL] 8.5 fL (10/31/17 9:49 AM) Platelet [133-450 159 K/CMM K/CMM] (10/31/17 9:49 AM) Segs [45.0-75.0 %] 62.1 % (10/31/17 9:49 AM) Lymphocytes 16.7 % [20.0-40.0 %] *LOW* (10/31/17 9:49 AM) Monocytes [2.0-12.0 10.6 % %] (10/31/17 9:49 AM) Eosinophils [0.0-4.0 9.6 % %] *HI* (10/31/17 9:49 AM) Basophils [0.0-1.0 1.0 % %] (10/31/17 9:49 AM) Neutrophils # 3.6 K/CMM [1.5-8.1 K/CMM] (10/31/17 9:49 AM) Lymphocytes # 1.0 K/CMM [1.0-5.5 K/CMM] (10/31/17 9:49 AM) Monocytes # [0.0-0.8 0.6 K/CMM K/CMM] (10/31/17 9:49 AM) Eosinophils # 0.5 K/CMM [0.0-0.5 K/CMM] (10/31/17 9:49 AM) Basophils # [0.0-0.2 0.1 K/CMM K/CMM] (10/31/17 9:49 AM) PT [12.0-14.7 14.4 seconds seconds] (10/31/17 9:49 AM) INR [0.85-1.17] 1.12 (10/31/17 9:49 AM) PTT [22.9-35.8 32.2 seconds seconds] (10/31/17 9:49 AM) Immunizations No data available for this section Procedures Procedure Date Related Diagnosis Body Site [...]
--- OUTSIDE RECORDS SUMMARY | 2018-08-19 13:03 | XMS REPORT | Continuity of Care Document ---
Author Author [facility] Interface Address Unknown Phone Unavailable Problems Problem Status Onset Date Classification Date Reported Comments Source RENAL/DO NOT USE FOR CHARGES F/C NOTES O Active 08/12/2018 [facility] NEW EVALUATION Active 07/17/2018 [facility] Other specified complication of vascular prosthetic devices, implants and grafts, initial encounter 01/11/2018 07/27/2018 [facility] N18.6 Active 11/26/2017 [facility] Hypertensive chronic kidney disease with stage 5 chronic kidney disease or end stage renal disease 07/27/2018 [facility] End stage renal disease 07/27/2018 [facility] Dependence on renal dialysis 07/27/2018 [facility] Obstructive sleep apnea (pediatric) 07/27/2018 [facility] Personal history of nicotine dependence 05/25/2018 [facility] detention use of aspirin 07/27/2018 [facility] End stage renal disease Active Problem 07/27/2018 [facility] Hypertension Resolved Problem 07/27/2018 [facility] Obstructive sleep apnea Active Problem 07/27/2018 [facility] Atherosclerotic heart disease of [place] coronary artery without angina pectoris 07/27/2018 [facility] END STAGE RENAL DISEASE Active [facility] Medications Medication Details Route Status Patient Instructions Ordering Provider Order Date Source protamine (ANES) Route: IV, Drug form: INJ, ONCE, Stop date: 01/07/18 10:06:00 CDT Inactive 01/07/2018 [facility] phenylephrine (ANES) Route: IV, Drug form: INJ, ONCE, Stop date: 01/07/18 10:06:00 CDT Inactive 01/07/2018 [facility] ceFAZolin (ANES) Route: IV, Drug form: INJ, ONCE, Stop date: 01/07/18 9:59:00 CDT Inactive 01/07/2018 [facility] heparin (ANES) Route: IV, Drug form: INJ, ONCE, Stop date: 01/07/18 9:59:00 CDT Inactive 01/07/2018 [facility] ePHEDrine (ANES) Route: IV, Drug form: INJ, ONCE, Stop date: 01/07/18 9:59:00 CDT Inactive 01/07/2018 [facility] Acetaminophen 300 MG / Codeine Phosphate 60 MG Oral Tablet 1 tab=, PO, Q4H, PRN Pain, X 7 day, # 42 tab, 0 Refill(s) No Longer Active 01/07/2018 [facility] Cephalexin 500 MG Oral Capsule [Keflex] 500 mg=1 cap, PO, BID, X 7 day, # 14 cap, 0 Refill(s) No Longer Active 01/07/2018 [facility] midazolam (ANES) Route: IV, Drug form: SOLN, ONCE, Stop date: 01/07/18 9:34:00 CDT Inactive 01/07/2018 [facility] lidocaine (ANES) Route: IV, Drug form: INJ, ONCE, Stop date: 01/07/18 9:34:00 CDT Inactive 01/07/2018 [facility] fentaNYL (ANES) Route: IV, Drug form: INJ, ONCE, Stop date: 01/07/18 9:34:00 CDT Inactive 01/07/2018 [facility] propofol (ANES) Route: IV, Drug form: INJ, ONCE, Stop date: 01/07/18 9:34:00 CDT Inactive 01/07/2018 [facility] rocuronium (ANES) Route: IV, Drug form: INJ, ONCE, Stop date: 01/07/18 9:34:00 CDT Inactive 01/07/2018 [facility] Lactated Ringers Injection IV (ANES) 1000 mL Route: IV, Total Volume: 1,000, Start date: 01/07/18 8:49:00 CDT, Stop date: 01/07/18 9:49:00 CDT Inactive 01/07/2018 [facility] Meperidine 12.5 mg, 0.5 mL, Route: IVP, Drug form: INJ, Q30Min, Dosing Weight 139.091, kg, PRN Other -See Comment, For shivering, Start date: 01/07/18 8:43:00 CDT, Duration: 2 doses or times, Stop date: 01/07/18 2 2:00:00 CDTNotes: (Same as: Demerol) "Use Precaution in Elderly, Seizure disorders, and Renal impairment" Inactive 01/07/2018 [facility] Ondansetron 4 mg, 2 mL, Route: IVP, Drug form: INJ, ONCE, Dosing Weight 139.091, kg, PRN Nausea & Vomiting, Start date: 01/07/18 8:43:00 CDTNotes: (Same as: Zofran) MEDICATION WASTE Product Size: 4 mg Product Wasted: ___ mg Inactive 01/07/2018 [facility] Morphine 4 mg, 1 mL, Route: IVP, Drug form: SOLN, Q5Min, Dosing Weight 139.091, kg, PRN Pain Score 7-10, Start date: 01/07/18 8:43:00 CDT, Duration: 3 doses or times, Stop date: 01/07/18 22:00:00 CDTNotes: (Same as: MORPhine Sulfate) Inactive 01/07/2018 [facility] Flumazenil 0.2 mg, 2 mL, Route: IVP, Drug form: INJ, PRN, Dosing Weight 139.091, kg, PRN Benzodiazepine Reversal, Initial dose, Start date: 01/07/18 8:43:00 CDT, Duration: 12 hr, Stop date: 01/07/18 20:42:00 CD TNotes: (Same as: Romazicon) Inactive 01/07/2018 [facility] Naloxone 0.4 mg, 1 mL, Route: IVP, Drug form: INJ, Q2MIN, Dosing Weight 139.091, kg, PRN Narcotic Reversal, Start date: 01/07/18 8:43:00 CDT, Duration: 8 doses or times, Stop date: 01/07/18 22:00:00 CDTNotes: Same as Narcan Inactive 01/07/2018 [facility] Hydralazine 10 mg, 0.5 mL, Route: IVP, Drug form: INJ, Q10Min, Dosing Weight 139.091, kg, PRN Elevated BP, Start date: 01/07/18 8:43:00 CDT, Duration: 2 doses or times, Stop date: 01/07/18 22:00:00 CDTNotes: (Same as: Apresoline) Push over 5 minutes Inactive 01/07/2018 [facility] Oxycodone 5 mg, 1 tab, Route: PO, Drug form: TAB, Q4H, Dosing Weight 139.091, kg, PRN Pain Score 4-6, Start date: 01/07/18 8:43:00 CDT, Duration: 12 hr, Stop date: 01/07/18 20:42:00 CDTNotes: (Same as: Roxicodone) Inactive 01/07/2018 [facility] Calcium Chloride 0.0014 MEQ/ML / Potassium Chloride 0.004 MEQ/ML / Sodium Chloride 0.103 MEQ/ML / Sodium Lactate 0.028 MEQ/ML Injectable Solution 1,000 mL, Rate: 25 ml/hr, Infuse over: 40 hr, Route: IV, Dosing Weight 139.091 kg, Total Volume: 1,000, Start date: 01/07/18 8:42:00 CDT, Duration: 30 day, Stop date: 02/06/18 8:41:00 CDT, 2.74, m2 Inactive 01/07/2018 [facility] Ancef + sterile water 30 mL 3 gm, Route: IVPB, ONCE, Dosing Weight 139.091, kg, Start date: 01/07/18 5:46:00 CDT, Stop date: 01/07/18 5:46:00 CDT, ABX Indication: Surgical ProphylaxisNotes: (Same As: Kendell Boothefzol) MEDICATION WASTE Product Size: 1000 mg Product Wasted: ___ mg Inactive 01/07/2018 [facility] Sodium Chloride 0.9% IV 250 mL 250 mL, Rate: 30 ml/hr, Infuse over: 8.3 hr, Route: IV, Dosing Weight 139.091 kg, Total Volume: 250, Start date: 01/07/18 5:45:00 CDT, Duration: 30 day, Stop date: 02/06/18 5:44:00 CDT, 2.74, m2 Inactive 01/07/2018 [facility] Cephalexin 500 MG Oral Capsule [Keflex] 500 mg=1 cap, PO, BID, X 7 day, # 14 cap, 0 Refill(s) No Longer Active 11/05/2017 [facility] Acetaminophen 300 MG / Codeine Phosphate 60 MG Oral Tablet 1 tab=, PO, Q4H, PRN Pain, X 7 day, # 42 tab, 0 Refill(s) No Longer Active 11/05/2017 [facility] heparin (ANES) Route: IV, Drug form: INJ, ONCE, Stop date: 11/05/17 9:06:00 CDT Inactive 11/05/2017 [facility] ceFAZolin (ANES) Route: IV, Drug form: INJ, ONCE, Stop date: 11/05/17 9:06:00 CDT Inactive 11/05/2017 [facility] propofol (ANES) Route: IV, Drug form: INJ, ONCE, Stop date: 11/05/17 9:06:00 CDT Inactive 11/05/2017 [facility] fentaNYL (ANES) Route: IV, Drug form: INJ, ONCE, Stop date: 11/05/17 9:06:00 CDT Inactive 11/05/2017 [facility] rocuronium (ANES) Route: IV, Drug form: INJ, ONCE, Stop date: 11/05/17 9:06:00 CDT Inactive 11/05/2017 [facility] lidocaine (ANES) Route: IV, Drug form: INJ, ONCE, Stop date: 11/05/17 9:06:00 CDT Inactive 11/05/2017 [facility] midazolam (ANES) Route: IV, Drug form: SOLN, ONCE, Stop date: 11/05/17 9:06:00 CDT Inactive 11/05/2017 [facility] protamine (ANES) 10 mg Route: IV, Drug form: INJ, Start date: 11/05/17 9:05:00 CDT, Stop date: 11/05/17 10:05:00 CDT Inactive 11/05/2017 [facility] Sodium Chloride 0.9% IV (ANES) 250 mL Route: IV, Total Volume: 250, Start date: 11/05/17 8:09:00 CDT, Stop date: 11/05/17 9:09:00 CDT Inactive 11/05/2017 [facility] ceFAZolin + sterile water 30 mL 3 gm, Route: IVPB, ONCALL, Dosing Weight 138.295, kg, Start date: 11/05/17 8:00:00 CDT, Duration: 1 doses or times, ABX Indication: Surgical ProphylaxisNotes: (Same As: Jared Boothe) MEDICATION WASTE Product Size: 1000 mg Product Wasted: ___ mg Inactive 11/05/2017 [facility] Morphine 2 mg, 1 mL, Route: IVP, Drug form: SOLN, Q5Min, Dosing Weight 138.295, kg, PRN Pain Score 4-6, Start date: 11/05/17 7:50:00 CDT, Duration: 5 doses or times, Stop date: 11/05/17 19:50:00 CDT Inactive 11/05/2017 [facility] Meperidine 12.5 mg, 0.5 mL, Route: IVP, Drug form: INJ, Q30Min, Dosing Weight 138.295, kg, PRN Other -See Comment, For shivering, Start date: 11/05/17 7:50:00 CDT, Duration: 2 doses or times, Stop date: 11/05/17 1 9:50:00 CDTNotes: (Same as: Demerol) "Use Precaution in Elderly, Seizure disorders, and Renal impairment" Inactive 11/05/2017 [facility] Naloxone 0.4 mg, 1 mL, Route: IVP, Drug form: INJ, Q2MIN, Dosing Weight 138.295, kg, PRN Narcotic Reversal, Start date: 11/05/17 7:50:00 CDT, Duration: 8 doses or times, Stop date: 11/05/17 19:50:00 CDTNotes: Same as Narcan Inactive 11/05/2017 [facility] Flumazenil 0.2 mg, 2 mL, Route: IVP, Drug form: INJ, PRN, Dosing Weight 138.295, kg, PRN Benzodiazepine Reversal, Initial dose, Start date: 11/05/17 7:50:00 CDT, Duration: 12 hr, Stop date: 11/05/17 19:49:00 CD TNotes: (Same as: Romazicon) Inactive 11/05/2017 [facility] Oxycodone 5 mg, 1 tab, Route: PO, Drug form: TAB, Q4H, Dosing Weight 138.295, kg, PRN Pain Score 4-6, Start date: 11/05/17 7:50:00 CDT, Duration: 12 hr, Stop date: 11/05/17 19:49:00 CDTNotes: (Same as: Roxicodone) Inactive 11/05/2017 [facility] Labetalol 10 mg, 2 mL, Route: IVP, Drug form: INJ, Q5Min, Dosing Weight 138.295, kg, PRN Elevated BP, Start date: 11/05/17 7:50:00 CDT, Duration: 5 doses or times, Stop date: 11/05/17 19:50:00 CDTNotes: (Same as: Normodyne, Trandate) Push over 2 minutes Give bolus over 2-3 minutes. Inactive 11/05/2017 [facility] Ondansetron 4 mg, 2 mL, Route: IVP, Drug form: INJ, ONCE, Dosing Weight 138.295, kg, PRN Nausea & Vomiting, Start date: 11/05/17 7:50:00 CDTNotes: (Same as: Zofran) MEDICATION WASTE Product Size: 4 mg Product Wasted: ___ mg Inactive 11/05/2017 [facility] Cefazolin 2 gm, 50 mL, Route: IVPB, Drug form: INJ, ONCALL, Dosing Weight 138.295, kg, Start date: 11/05/17 6:00:00 CDT, Duration: 1 doses or times, ABX Indication: Surgical Prophylaxis Inactive 11/05/2017 [facility] Sodium Chloride 0.9% IV 250 mL 250 mL, Rate: 30 ml/hr, Infuse over: 8.3 hr, Route: IV, Dosing Weight 138.295 kg, Total Volume: 250, Start date: 11/05/17 5:29:00 CDT, Duration: 30 day, Stop date: 12/05/17 5:28:00 CDT, 2.73, m2 Inactive 11/05/2017 [facility] Aspirin 81 MG Enteric Coated Tablet 81 mg=1 tab, PO, Daily, # 90 tab, 3 Refill(s) Active 10/31/2017 [facility] cinacalcet 60 MG Oral Tablet [Sensipar] 60 mg=1 tab, PO, Daily, # 30 tab, 0 Refill(s) Active 10/31/2017 [facility] sevelamer carbonate 800 MG Oral Tablet [Renvela] 800 mg=1 tab, PO, TID-Meals, # 90 tab, 0 Refill(s) Active 10/31/2017 [facility] multivitamin Daily, 0 Refill(s) Active 10/31/2017 [facility] Allergies, Adverse Reactions, Alerts Substance Category Reaction Severity Reaction type Status Date Reported Comments Source Immunizations Immunization Date Given Site Status Last Updated Comments Source Hx pneumococcal vaccine 04/28/2018 cherie Morillo [facility] Hx influenza vaccine-unspecified 01/10/2018 completed [facility] influenza vaccine-unspecified 01/17/2017 completed [facility] influenza vaccine-unspecified 12/24/2015 completed [facility] influenza vaccine-unspecified 01/17/2015 completed [facility] Hx hepatitis B vaccine 05/11/2014 completed [facility] influenza vaccine-unspecified 12/23/2013 completed [facility] hepatitis B vaccine 12/18/2013 completed [facility] hepatitis B vaccine 11/16/2013 completed [facility] Hx hepatitis B vaccine 10/07/2013 completed [facility] influenza vaccine-unspecified 05/08/2013 completed [facility] pneumococcal vaccine 03/02/2013 completed [facility] Results Order Name Results Value Reference Range Date Interpretation Comments [facility] CHEM PANEL eGFR 6 mL/min/1.73m2 01/02/2018 Result Comment: The eGFR is calculated using the [...] from the National Kidney Disease Education Program (NKDEP) which additionally recommends that when the eGFR is used in patients with extremes of body mass index for purposes of drug dosing, the eGFR should be multiplied by the estimated BMI. [facility] CHEM PANEL Potassium Lvl 5.0 meq/L 3.5 - 5.1 01/02/2018 [facility] CHEM PANEL Chloride Lvl 97 meq/L 95 - 109 01/02/2018 [facility] CHEM PANEL Calcium Lvl 10.0 mg/dL 8.5 - 10.5 01/02/2018 [facility] CHEM PANEL CO2 32 meq/L 24 - 32 01/02/2018 [facility] CHEM PANEL Glucose Lvl 74 mg/dL 70 - 99 01/02/2018 [facility] CHEM PANEL Sodium Lvl 138 meq/L 135 - 145 01/02/2018 [facility] CHEM PANEL BUN 38 mg/dL 7 - 22 01/02/2018 [facility] CHEM PANEL Creatinine Lvl 10.20 mg/dL 0.50 - 1.40 01/02/2018 [facility] CHEM PANEL AGAP 14.0 meq/L 10.0 - 20.0 01/02/2018 [facility] HEMATOLOGY Eosinophils # 0.5 K/CMM 0.0 - 0.5 01/02/2018 [facility] HEMATOLOGY Segs 68.7 % 45.0 - 75.0 01/02/2018 [facility] HEMATOLOGY Lymphocytes 15.1 % 20.0 - 40.0 01/02/2018 [facility] HEMATOLOGY Monocytes 8.8 % 2.0 - 12.0 01/02/2018 [facility] HEMATOLOGY Lymphocytes # 1.1 K/CMM 1.0 - 5.5 01/02/2018 [facility] HEMATOLOGY Monocytes # 0.6 K/CMM 0.0 - 0.8 01/02/2018 [facility] HEMATOLOGY Neutrophils # 5.0 K/CMM 1.5 - 8.1 01/02/2018 [facility] HEMATOLOGY Eosinophils 6.7 % 0.0 - 4.0 01/02/2018 [facility] HEMATOLOGY Basophils 0.7 % 0.0 - 1.0 01/02/2018 [facility] HEMATOLOGY RDW 15.3 % 11.5 - 14.5 01/02/2018 [facility] HEMATOLOGY MCHC 33.1 g/dL 32.0 - 36.0 01/02/2018 [facility] HEMATOLOGY Platelet 181 K/CMM 133 - 450 01/02/2018 [facility] HEMATOLOGY MPV 8.6 fL 7.4 - 10.4 01/02/2018 [facility] HEMATOLOGY WBC 7.3 K/CMM 3.7 - 10.4 01/02/2018 [facility] MCH 31.2 pg 27.0 - 31.0 01/02/2018 [facility] HEMATOLOGY Hct 42.6 % 42.0 - 54.0 01/02/2018 [facility] HEMATOLOGY MCV 94.4 fL 80.0 - 94.0 01/02/2018 [facility] HEMATOLOGY RBC 4.52 M/CMM 4.70 - 6.10 01/02/2018 [facility] HEMATOLOGY Hgb 14.1 g/dL 14.0 - 18.0 01/02/2018 [facility] HEMATOLOGY PT 13.9 s 12.0 - 14.7 01/02/2018 [facility] HEMATOLOGY INR 1.07 0.85 - 1.17 01/02/2018 [facility] HEMATOLOGY PTT 34.9 s 22.9 - 35.8 01/02/2018 [facility] ELECTROLYTES Potassium Lvl 4.8 meq/L 3.5 - 5.1 11/05/2017 [facility] CHEM PANEL eGFR 6 mL/min/1.73m2 10/31/2017 Result Comment: The eGFR is calculated using the [...] from the National Kidney Disease Education Program (NKDEP) which additionally recommends that when the eGFR is used in patients with extremes of body mass index for purposes of drug dosing, the eGFR should be multiplied by the estimated BMI. [facility] CHEM PANEL CO2 32 meq/L 24 - 32 10/31/2017 [facility] CHEM PANEL Calcium Lvl 10.3 mg/dL 8.5 - 10.5 10/31/2017 [facility] CHEM PANEL Glucose Lvl 79 mg/dL 70 - 99 10/31/2017 [facility] CHEM PANEL Creatinine Lvl 9.53 mg/dL 0.50 - 1.40 10/31/2017 [facility] CHEM PANEL BUN 37 mg/dL 7 - 22 10/31/2017 [facility] CHEM PANEL Sodium Lvl 137 meq/L 135 - 145 10/31/2017 [facility] CHEM PANEL Chloride Lvl 99 meq/L 95 - 109 10/31/2017 [facility] CHEM PANEL Potassium Lvl 5.1 meq/L 3.5 - 5.1 10/31/2017 [facility] CHEM PANEL AGAP 11.1 meq/L 10.0 - 20.0 10/31/2017 [facility] HEMATOLOGY Monocytes 10.6 % 2.0 - 12.0 10/31/2017 [facility] HEMATOLOGY Basophils 1.0 % 0.0 - 1.0 10/31/2017 [facility] HEMATOLOGY Eosinophils 9.6 % 0.0 - 4.0 10/31/2017 [facility] HEMATOLOGY Basophils # 0.1 K/CMM 0.0 - 0.2 10/31/2017 [facility] HEMATOLOGY Segs 62.1 % 45.0 - 75.0 10/31/2017 [facility] HEMATOLOGY Lymphocytes 16.7 % 20.0 - 40.0 10/31/2017 [facility] Neutrophils # 3.6 K/CMM 1.5 - 8.1 10/31/2017 [facility] Lymphocytes # 1.0 K/CMM 1.0 - 5.5 10/31/2017 [facility] Monocytes # 0.6 K/CMM 0.0 - 0.8 10/31/2017 [facility] Eosinophils # 0.5 K/CMM 0.0 - 0.5 10/31/2017 [facility] PTT 32.2 s 22.9 - 35.8 10/31/2017 [facility] PT 14.4 s 12.0 - 14.7 10/31/2017 [facility] INR 1.12 0.85 - 1.17 10/31/2017 [facility] RBC 4.48 M/CMM 4.70 - 6.10 10/31/2017 [facility] WBC 5.7 K/CMM 3.7 - 10.4 10/31/2017 [facility] MCV 92.8 fL 80.0 - 94.0 10/31/2017 [facility] MPV 8.5 fL 7.4 - 10.4 10/31/2017 [facility] Hct 41.5 % 42.0 - 54.0 10/31/2017 [facility] Hgb 13.8 g/dL 14.0 - 18.0 10/31/2017 [facility] RDW 15.5 % 11.5 - 14.5 10/31/2017 [facility] MCHC 33.2 g/dL 32.0 - 36.0 10/31/2017 [facility] Platelet 159 K/CMM 133 - 450 10/31/2017 [facility] MCH 30.8 pg 27.0 - 31.0 10/31/2017 [facility] Chest 1view DX Chest 1view DX Clinical Indication: Coughing - Coughing. Comparison: None. FINDINGS: AP chest radiograph was obtained. MEDIASTINUM: The cardiac silhouette is normal in size. The aorta is tortuous. LUNGS: The lungs are clear. No pleural effusion. No pneumothorax. OTHER: No acute osseous abnormalities. IMPRESSION: No acute cardiopulmonary abnormality identified. SL: [id number] 10/31/2017 - - Read by: Carlos Edwards MD Dictated Date/time: 10/31/17 11:17 Electronically Signed by: Carlos Edwards MD 10/31/17 11:22 FINAL REPORT [facility] Vital Signs Vital Sign Value Date Comments Source Respitory Rate 16 01/07/2018 [facility] Systolic (mm Hg) 145 01/07/2018 [facility] Diastolic (mm Hg) 77 01/07/2018 [facility] Systolic (mm Hg) 164 01/07/2018 [facility] Diastolic (mm Hg) 80 01/07/2018 [facility] Respitory Rate 16 01/07/2018 [facility] Systolic (mm Hg) 154 01/07/2018 [facility] Diastolic (mm Hg) 98 01/07/2018 [facility] Respitory Rate 11 01/07/2018 [facility] Heart Rate 77 01/07/2018 [facility] Height 190.5 cm 01/02/2018 [facility] Weight 139.091 01/02/2018 [facility] BMI Calculated 38.33 01/02/2018 [facility] Systolic (mm Hg) 150 11/05/2017 [facility] Diastolic (mm Hg) 80 11/05/2017 [facility] Respitory Rate 16 11/05/2017 [facility] Systolic (mm Hg) 158 11/05/2017 [facility] Diastolic (mm Hg) 85 11/05/2017 [facility] Respitory Rate 16 11/05/2017 [facility] Respitory Rate 16 11/05/2017 [facility] Systolic (mm Hg) 162 11/05/2017 [facility] Diastolic (mm Hg) 89 11/05/2017 [facility] Heart Rate 67 11/05/2017 [facility] Weight 138.295 10/31/2017 [facility] BMI Calculated 38.11 10/31/2017 [facility] Height 190.5 cm 10/31/2017 [facility] Encounters Location Location Details Encounter Type Encounter Number Reason For Visit Attending Provider ADM Date DC Date Status Source [facility] Day Surgery [id number] Kousta Fote 11/05/2017 11/05/2017 [facility] Day Surgery [id number] Kousta Fote 01/07/2018 01/07/2018 [facility] Procedures Procedure Code Date Perfomer Comments Source Colonoscopy [id number] 04/22/2016 [facility] Hydrocele operation [id number] 04/22/2003 [facility] Repair of umbilical hernia [id number] 04/22/1989 [facility] Endoscopy [id number] [facility]
--- NOTE | 2018-08-25 14:46 | Operative Report ---
DATE OF PROCEDURE: 08/19/2018 SURGEON: Chandrakant Strange MD PREOPERATIVE DIAGNOSIS: Rising PSA. POSTOPERATIVE DIAGNOSIS: Rising PSA. OPERATIVE PROCEDURE PERFORMED: Transrectal ultrasound and biopsy of the prostate. ANESTHESIA: MAC. ESTIMATED BLOOD LOSS: Minimal. INDICATIONS: Mr. Kamron Wilkes is a 58-year-old black man with a known history of renal failure on dialysis, who has noted a rise in his PSA now to approximately 15. He presents for further diagnosis and management of this problem. PROCEDURE IN DETAIL: The patient was brought into the operating room and after initiation of IV sedation was placed in left lateral decubitus position and prepped and draped in usual sterile fashion. Transrectal ultrasonography was performed. The gland measured approximately 80 cc in volume. There were bilateral hypoechoic lesion noted in the midportion of the gland. Seminal vesicles were otherwise intact. He had a minimal postvoid residual. Under ultrasound guidance, a total of 12 biopsies were taken in the usual standard manner. These were sent to pathology individually for microscopic analysis. There was minimal bleeding noted at the end of the procedure. Once the procedure was complete, the patient was returned to supine position and transferred to postanesthesia care unit in good condition. Of note, the needle and instrument count were correct at the conclusion of the case. Chandrakant Strange MD HLW/MODL /[id number] MTDD
== END | disposition home or self-care (01) ==
LOC: OR 07:20
PROVIDERS: ATTEND Urology
DX: C61 Malignant neoplasm of prostate (principal); N18.6 End stage renal disease; G47.33 Obstructive sleep apnea (adult) (pediatric); Z01.810 Encounter for preprocedural cardiovascular examination; Z01.818 Encounter for other preprocedural examination; Z99.2 Dependence on renal dialysis; Z79.82 Long term (current) use of aspirin
CPT/HCPCS: 36415; 55700; 71046; 76872; 80048; 85025; 85610; 85730; 88305; 88342; 93005; J0696; J2001; J2250; J2704; J7040; 76998

== ENCOUNTER → 2018-09-18 | Outpatient (CLI) | payer MEDICARE, OTHER ==
[~2018-09-18] MED LIST changes: -CEFTRIAXONE SOD 1 GM/NS 50 ML 50 ML IV ONE; -FENTANYL CITRATE/PF 100MCG/2 ML INJ ONE; +IOPAMIDOL 370 MG/ML 200 ML INFUS..BTL INJ ONE; -LIDOCAINE HCL 2% LOCAL INJ 5 ML SDV VIAL INJ ONE; -MIDAZOLAM HCL 2 MG/2 ML VIAL ONE; -PROPOFOL IV EMULSION 10 MG/ML 20 ML VIAL ONE; -SODIUM CHLORIDE 0.9% 500ML 500 ML ONE; +SODIUM CHLORIDE 0.9% 50ML 50 ML ONE
--- NOTE | 2018-09-18 15:40 | Diagnostic Imaging Report ---
EXAM: CT Abdomen and Pelvis WITH contrast INDICATION: Prostate cancer. COMPARISON: Transrectal prostate ultrasound 08/19/2018. TECHNIQUE: Abdomen and pelvis were scanned utilizing a multidetector helical scanner from the lung base to the pubic symphysis after administration of IV contrast. Coronal and sagittal reformations were obtained. Routine protocol was performed. Scan was performed when during portal venous phase. IV CONTRAST: 100 cc of Isovue 370 ORAL CONTRAST: Water COMPLICATIONS: None RADIATION DOSE: Total DLP: 873.1 mGy*cm Dose modulation, iterative reconstruction, and/or weight based adjustment of the mA/kV was utilized to reduce the radiation dose to as low as reasonably achievable. FINDINGS: LINES and TUBES: None. LOWER THORAX: Patchy dependent atelectasis. Right upper lobe cyst. Extensive coronary atherosclerosis. HEPATOBILIARY: No evidence of focal lesion. No biliary ductal dilation. GALLBLADDER: No radio-opaque stones or sludge. No wall thickening. SPLEEN: No splenomegaly. PANCREAS: No focal masses or ductal dilatation. ADRENALS: No adrenal nodules KIDNEYS/URETERS: Kidneys enhance symmetrically. No evidence of hydronephrosis, solid mass, or stone. GI TRACT: No evidence of wall thickening or distension. Appendix is normal. There is scattered colonic diverticulosis without CT evidence of diverticulitis. PELVIC ORGANS/BLADDER: The prostate is enlarged, measuring up to approximately 5.7 x 6.4 x 7.9 cm. Prostate volume is better characterized on ultrasound from 08/19/2018. There is mild surrounding periprostatic stranding. There is soft tissue measuring up to 3.4 x 3.6 cm along the posterior aspect of the bladder. The bladder is decompressed and with apparent diffusely thick wall, measuring up to 0.8 cm. LYMPH NODES: Mildly enlarged 1.1 cm left common iliac artery lymph node on series 2, image 62 and left pelvic sidewall lymph node, measuring up to 1.1 cm on image 82. Nonenlarged bilateral inguinal lymph nodes. Small retroperitoneal lymph nodes, not meeting size criteria for enlargement. VESSELS: There are scattered atherosclerotic calcifications in the aorta and branch vessels. PERITONEUM / RETROPERITONEUM: No free air or fluid. BONES AND SOFT TISSUES: Nonspecific 1.0 cm right posterior ischium sclerotic focus on series 2, image 88 and 0.5 cm sclerotic focus in the left iliac bone on image 72. Degenerative disc changes of the lower thoracic and lumbar spine. There are prominent lytic endplate changes, most pronounced at L4-L5, likely representing Schmorl's nodes. CONCLUSION: Prostatomegaly in this patient with prostate cancer. Surrounding periprostatic stranding and mildly enlarged left pelvic side wall and left common iliac artery lymphadenopathy. Dedicated prostate MRI may be considered for further evaluation. Soft tissue along the posterior aspect of the bladder may be extrinsic from the enlarged prostate. This can be correlated with cystoscopy if clinically indicated. Diffusely mildly thick walled bladder which may reflect decompression or cystitis in the appropriate clinical setting. Non-specific sclerotic foci in the right ischium and left iliac bones. Bone scan may be considered for further evaluation. Extensive coronary atherosclerosis. Signed by: Dr. Gustavo Sharma MD on 09/18/2018 3:37 PM
--- NOTE | 2018-09-18 21:40 | Diagnostic Imaging Report ---
Bone Scan, delayed phase INDICATION: C61: Malignant neoplasm of prostate COMPARISON: CT abdo/pelvis 09/18/2018 REPORT: Approximately 4 hours following intravenous administration of 27.5 mCi of Tc-99m MDP, delayed total body images in the anterior and posterior projections and selected spot images were obtained. Focal markedly increased tracer activity is seen in the right side of L4. Otherwise, distribution of tracer activity is unremarkable throughout the skeletal system. No abnormal accumulation of tracer is seen in the soft tissues. No tracer is seen in the kidneys and bladder, consistent with known ESRD on dialysis. IMPRESSION: No scan evidence of metastatic bone disease. Osteoblastic process in the right side of L4 corresponds to Schmorl's nodes seen on today's CT scan. No osteoblastic lesions are seen to corresponds to the sclerotic lesions in the right ischium and left ilium seen on today's CT scan. Signed by: Dr. Juani Villafana M.D. on 09/18/2018 9:36 PM
== END ==
LOC: NM 11:51
PROVIDERS: ATTEND Urology
DX: C61 Malignant neoplasm of prostate (principal)
CPT/HCPCS: 74177; 78306; A9503; Q9967